=== PATIENT | female | born 1945 | race Caucasian/White ===

== ENCOUNTER 2016-11-06 07:09 | Day surgery (SDC) | payer MEDICARE, OTHER ==
[2016-11-06] MEDS ORDERED: Sodium Chloride 0.9% 1,000 ML IV SCH (07:45)
[2016-11-06] MEDS ORDERED: Propofol 200 MG/20 ML SDV ONE (08:27)
[2016-11-06] MEDS ORDERED: Midazolam 1 MG/ML 2 ML SDV ONE (08:28)
[2016-11-06] MEDS ORDERED: fentaNYL 100 MCG/2 ML SDV ONE (08:28)
[2016-11-06 10:40] VITALS: BP 100/70
--- NOTE | 2016-11-09 12:06 | OR ---
DATE OF PROCEDURE: 11/06/2016 PROCEDURE: Colonoscopy. FINDINGS: Transverse colon polyp, 5 mm, completely removed using cold biopsy forceps; sigmoid colon polyp, 5 mm, completely removed using cold biopsy forceps. COMPLICATIONS: None. DEMO COORDINATOR: None. ANESTHETIC: MAC. PREOPERATIVE DIAGNOSIS: History of colon polyps. POSTOPERATIVE DIAGNOSIS: History of colon polyps. CONSENT: The risks, benefits, alternatives, and limitations, including, but not limited to infection, bleeding, and perforation were explained, and the patient wished to proceed. PROCEDURE IN DETAIL: The patient was placed in left lateral decubitus position. A digital rectal exam was performed without abnormality. The scope was introduced and advanced atraumatically to the ileocecal valve. The scope was brought back to the ascending, transverse, descending colon, and retroflexed. The aforementioned polyps were identified and completely removed. No other abnormalities were noted. No diverticulosis, no masses. The patient tolerated the procedure well. Daron Mendiola MD /[id number]
== END 2016-11-06 10:55 | disposition home or self-care (01) ==
LOC: JP.SDS 07:09
PROVIDERS: ATTEND Surgery
PROC: 0DJD8ZZ Inspection of Lower Intestinal Tract, Via Natural or Artificial Opening Endoscopic (ICD-10-PCS; principal; 2016-11-06)
DX: Z86.010 Personal history of colon polyps (principal); D12.5 Benign neoplasm of sigmoid colon; D12.3 Benign neoplasm of transverse colon
CPT/HCPCS: 45378; J2250; J2704; J3010; J7040; 88305

== ENCOUNTER 2019-01-06 10:20 | Emergency (ER) | payer MEDICARE, OTHER ==
[2019-01-06 11:09] VITALS: BP 119/48
--- NOTE | 2019-01-06 12:32 | EDM.PDOC ---
ED HPI GENERAL MEDICAL PROBLEM - General Chief Complaint: ENT Problem Stated Complaint: CANCER TREATMENTS-NOT FEELING WELL/SORE THROAT Time Seen by Provider: 01/06/19 12:26 Source of Information: Reports: Patient History Limitations: Reports: No Limitations - History of Present Illness INITIAL COMMENTS - FREE TEXT/NARRATIVE: Patient presents concerned that she might have strep throat in the context of receiving chemotherapy. She is retirement through a current course of chemotherapy through the [facility] in [place]. Over the last 2 days she's noticed an increase in throat pain and redness. She contacted her oncologist today who recommended that she go to the local [facility] and have some blood drawn and a strep swab obtained. She reports that she went to the clinic but that there was no nurse available who could draw blood for lab testing. She came to the emergency department instead. Throat is moderately uncomfortable. She is concerned that her chemotherapy is reducing her blood counts and that is what is making her ill. She has no other new concerns apart from the throat. Onset: Gradual Duration: Day(s): (2) Location: Reports: Neck Quality: Reports: Burning Severity: Moderate Improves with: Reports: None Worsens with: Reports: Other (Swallowing) Associated Symptoms: Reports: Malaise. 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 - Related Data Allergies Allergy/AdvReac Type Severity Reaction Status Date / Time Sulfa (Sulfonamide Allergy Swelling Verified 01/06/19 11:07 Antibiotics) Home Meds: Home Meds Montelukast [Singulair] 10 mg PO DAILY 10/26/13 [History] Omeprazole 40 mg PO DAILY 10/26/13 [History] Sertraline [Zoloft] 100 mg PO DAILY 10/26/13 [History] atorvaSTATin [Lipitor] 40 mg PO BEDTIME 10/26/13 [History] Albuterol Sulfate [Proair Hfa] 1 - 2 gm IH Q4H PRN 11/04/16 [History] Ergocalciferol (Vitamin D2) [Vitamin D] 400 unit PO DAILY 11/06/16 [History] Past Medical History HEENT History: Reports: Cataract, Hard of Hearing, Impaired Vision Other HEENT History: wears glasses, right hearing aide Cardiovascular History: Reports: High Cholesterol Respiratory History: Reports: Asthma, Other (See Below) Other Respiratory History: polymyalgia rheumatica Gastrointestinal History: Reports: Colon Polyp, GERD, Hemorrhoids Genitourinary History: Reports: Other (See Below) 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 - Infectious Disease History Infectious Disease History: Reports: Chicken Pox, Measles, Mononucleosis, Mumps - Past Surgical History Head Surgeries/Procedures: Reports: None HEENT Surgical History: Reports: Cataract Surgery, Tonsillectomy Cardiovascular Surgical History: Reports: None Respiratory Surgical History: Reports: None GI Surgical History: Reports: None Female Surgical History: Reports: Hysterectomy Musculoskeletal Surgical History: Reports: Shoulder Surgery, Other (See Below) Oncologic Surgical History: Reports: Other (See Below) Dermatological Surgical History: Reports: None Social & Family History - Family History Cardiac: Reports: Heart Failure - Tobacco Use Smoking Status *Q: Former Smoker Used Tobacco, but Quit: Yes Month/Year Tobacco Last Used: 1997 Second Hand Smoke Exposure: No - Caffeine Use Caffeine Use: Reports: Coffee - Recreational Drug Use Recreational Drug Use: No ED ROS ENT - Review of Systems Review Of Systems: See Below Constitutional: Reports: No Symptoms. Denies: Fever, Night Sweats HEENT: Reports: Throat Pain Respiratory: Reports: No Symptoms Cardiovascular: Reports: No Symptoms GI/Abdominal: Reports: Nausea ED EXAM, ENT - Physical Exam Exam: See Below Text/Narrative:: When speaking, the patient looks and sounds uncomfortable. Inspection of the oropharynx shows mild redness inside but no exudate. There are no neck masses to palpation on the neck. Remainder of head exam is unremarkable. Exam Limited By: No Limitations General Appearance: Mild Distress Mouth/Throat: Pharyngeal Erythema. No: Tonsillar Exudates, Tonsillar Swelling Respiratory/Chest: No Respiratory Distress Cardiovascular: Tachycardia Course - Vital Signs Last Recorded V/S: Last Vital Signs Temp 36.2 C 01/06/19 11:17 Pulse 99 01/06/19 11:17 Resp 19 01/06/19 11:17 BP 119/48 L 01/06/19 11:17 Pulse Ox 95 01/06/19 11:17 - Orders/Labs/Meds Orders: Active Orders 24 hr Category Date Time Status CULTURE STREP A CONFIRMATION [RM] Stat Lab 01/06/19 12:32 Results STREP SCRN A RAPID W CULT CONF [RM] Stat Lab 01/06/19 12:32 Results Labs: Laboratory Tests 01/06/19 Range/Units 12:43 WBC 2.6 L (4.5-11.0) K/uL RBC 3.57 (3.30-5.50) M/uL Hgb 10.0 L (12.0-15.0) g/dL Hct 29.5 L (36.0-48.0) % MCV 83 (80-98) fL MCH 28 (27-31) pg MCHC 34 (32-36) % Plt Count 20 L* (150-400) K/uL Add Manual Diff Yes Neutrophils % (Manual) 34 L (36-66) % Band Neutrophils % 2 L (5-11) % Lymphocytes % (Manual) 50 H (24-44) % Monocytes % (Manual) 8 H (2-6) % Eosinophils % (Manual) 2 (2-4) % Blast Cells % 4 % - Re-Assessments/Exams Free Text/Narrative Re-Assessment/Exam: 01/07/19 08:22 I returned later to review results of lab work which show leukopenia, thrombocytopenia, anemia. She reports that she has had counts lower than these in the past. Strep screen is negative. I recommend conservative measures with increased fluids and analgesics as needed. Contact her oncologist's office with results of this lab work for their review. Departure - Departure Time of Disposition: 13:49 Disposition: Home, Self-Care 01 Condition: Good Clinical Impression: Pharyngitis, Thrombocytopenia, Leukopenia - Discharge Information *PRESCRIPTION DRUG MONITORING PROGRAM REVIEWED*: Not Applicable *COPY OF PRESCRIPTION DRUG MONITORING REPORT IN PATIENT PHANI: Not Applicable Instructions: Pharyngitis Referrals: Aubrey Rodriguez MD [Primary Care Provider] - Forms: ED Department Discharge Additional Instructions: Contact [facility] oncology with reports of your lab work today. - My Orders Last 24 Hours: My Active Orders 01/06/19 12:32 CULTURE STREP A CONFIRMATION [RM] Stat STREP SCRN A RAPID W CULT CONF [RM] Stat - Assessment/Plan Last 24 Hours: My Active Orders 01/06/19 12:32 CULTURE STREP A CONFIRMATION [RM] Stat STREP SCRN A RAPID W CULT CONF [RM] Stat
== END 2019-01-06 14:05 | disposition home or self-care (01) ==
LOC: JP.ED 10:20
DX: J02.9 Acute pharyngitis, unspecified (principal); D69.6 Thrombocytopenia, unspecified; D72.819 Decreased white blood cell count, unspecified; E78.00 Pure hypercholesterolemia, unspecified; J45.909 Unspecified asthma, uncomplicated; Z79.899 Other long term (current) drug therapy; Z88.2 Allergy status to sulfonamides; Z87.891 Personal history of nicotine dependence
CPT/HCPCS: 36415; 85025; 87081; 87430; 99283

== ENCOUNTER 2019-01-09 06:30 | Emergency (ER) | payer MEDICARE, OTHER ==
--- NOTE | 2019-01-09 07:14 | EDM.PDOC ---
ED HPI GENERAL MEDICAL PROBLEM - General Chief Complaint: Gastrointestinal Problem Stated Complaint: stomach pain Time Seen by Provider: 01/09/19 07:04 Source of Information: Reports: Patient History Limitations: Reports: No Limitations - History of Present Illness INITIAL COMMENTS - FREE TEXT/NARRATIVE: pt arrived stating that she has not had a bm for about 1 week. abd pain Pain Score (Numeric/FACES): 4 - Related Data Allergies Allergy/AdvReac Type Severity Reaction Status Date / Time Sulfa (Sulfonamide Allergy Swelling Verified 01/06/19 11:07 Antibiotics) Home Meds: Home Meds Montelukast [Singulair] 10 mg PO DAILY 10/26/13 [History] Omeprazole 40 mg PO DAILY 10/26/13 [History] Sertraline [Zoloft] 100 mg PO DAILY 10/26/13 [History] atorvaSTATin [Lipitor] 40 mg PO BEDTIME 10/26/13 [History] Albuterol Sulfate [Proair Hfa] 1 - 2 gm IH Q4H PRN 11/04/16 [History] Ergocalciferol (Vitamin D2) [Vitamin D] 400 unit PO DAILY 11/06/16 [History] Past Medical History HEENT History: Reports: Cataract, Hard of Hearing, Impaired Vision Other HEENT History: wears glasses, right hearing aide Cardiovascular History: Reports: High Cholesterol Respiratory History: Reports: Asthma, Other (See Below) Other Respiratory History: polymyalgia rheumatica Gastrointestinal History: Reports: Colon Polyp, GERD, Hemorrhoids Genitourinary History: Reports: Other (See Below) Other Genitourinary History: nephrostomy 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 - Infectious Disease History Infectious Disease History: Reports: Chicken Pox, Measles, Mononucleosis, Mumps - Past Surgical History Head Surgeries/Procedures: Reports: None HEENT Surgical History: Reports: Cataract Surgery, Tonsillectomy Female Surgical History: Reports: Hysterectomy Musculoskeletal Surgical History: Reports: Shoulder Surgery, Other (See Below) Oncologic Surgical History: Reports: Other (See Below) Social & Family History - Family History Cardiac: Reports: Heart Failure - Tobacco Use Smoking Status *Q: Never Smoker - Caffeine Use Caffeine Use: Reports: Coffee - Recreational Drug Use Recreational Drug Use: No Course - Vital Signs Last Recorded V/S: Last Vital Signs Temp 36.1 C 01/09/19 06:43 Pulse 73 01/09/19 06:43 Resp 18 01/09/19 06:43 BP 143/71 H 01/09/19 06:43 Pulse Ox 98 01/09/19 06:43 Departure - Discharge Information Referrals: PCP,None [Primary Care Provider] -
[2019-01-09] MEDS ORDERED: Lidocaine 2% Jelly 10 ML Urojet MUCMEM ONE ×2 (07:16→08:36)
[2019-01-09] MEDS ORDERED: HYDROmorphone 0.5 MG/0.5 ML Syringe IVPUSH ONE ×2 (07:16→08:37)
[2019-01-09] MEDS ORDERED: Prochlorperazine 10 MG/2 ML SDV IVPUSH ONE (07:31)
--- NOTE | 2019-01-09 08:04 | EDM.PDOC ---
ED HPI GENERAL MEDICAL PROBLEM - General Chief Complaint: Gastrointestinal Problem Stated Complaint: stomach pain Time Seen by Provider: 01/09/19 07:04 Source of Information: Reports: Patient History Limitations: Reports: No Limitations - History of Present Illness INITIAL COMMENTS - FREE TEXT/NARRATIVE: pt arrived with a history of severe constipation. She has not had a bm for 1 week. She has been using zoforan 4 mg 3 to 4 times daily. Onset: Gradual, Other ( This has been going on for 1 week. ) Duration: Hour(s): Location: Reports: Abdomen Associated Symptoms: Reports: Loss of Appetite, Nausea/Vomiting, Other ( constipaion. ) abd pain Pain Score (Numeric/FACES): 4 - Related Data Allergies Allergy/AdvReac Type Severity Reaction Status Date / Time Sulfa (Sulfonamide Allergy Swelling Verified 01/06/19 11:07 Antibiotics) Home Meds: Home Meds Montelukast [Singulair] 10 mg PO DAILY 10/26/13 [History] Omeprazole 40 mg PO DAILY 10/26/13 [History] Sertraline [Zoloft] 100 mg PO DAILY 10/26/13 [History] atorvaSTATin [Lipitor] 40 mg PO BEDTIME 10/26/13 [History] Albuterol Sulfate [Proair Hfa] 1 - 2 gm IH Q4H PRN 11/04/16 [History] Ergocalciferol (Vitamin D2) [Vitamin D] 400 unit PO DAILY 11/06/16 [History] Past Medical History HEENT History: Reports: Cataract, Hard of Hearing, Impaired Vision Other HEENT History: wears glasses, right hearing aide Cardiovascular History: Reports: High Cholesterol Respiratory History: Reports: Asthma, Other (See Below) Other Respiratory History: polymyalgia rheumatica Gastrointestinal History: Reports: Colon Polyp, GERD, Hemorrhoids Genitourinary History: Reports: Other (See Below) Other Genitourinary History: nephrostomy 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 - Infectious Disease History Infectious Disease History: Reports: Chicken Pox, Measles, Mononucleosis, Mumps - Past Surgical History Head Surgeries/Procedures: Reports: None HEENT Surgical History: Reports: Cataract Surgery, Tonsillectomy Female Surgical History: Reports: Hysterectomy Musculoskeletal Surgical History: Reports: Shoulder Surgery, Other (See Below) Oncologic Surgical History: Reports: Other (See Below) Social & Family History - Family History Cardiac: Reports: Heart Failure - Tobacco Use Smoking Status *Q: Never Smoker - Caffeine Use Caffeine Use: Reports: Coffee - Recreational Drug Use Recreational Drug Use: No ED ROS GENERAL - Review of Systems Review Of Systems: See Below Constitutional: Reports: No Symptoms HEENT: Reports: No Symptoms Respiratory: Reports: No Symptoms Endocrine: Reports: No Symptoms GI/Abdominal: Reports: Constipation, Decreased Appetite, Nausea : Reports: No Symptoms Musculoskeletal: Reports: No Symptoms Skin: Reports: No Symptoms Neurological: Reports: No Symptoms Psychiatric: Reports: Anxiety Hematologic/Lymphatic: Reports: No Symptoms Immunologic: Reports: No Symptoms ED EXAM, GI/ABD - Physical Exam Exam: See Below Text/Narrative:: pt arrived very uncomfortable with a fecal impaction. She has a history of bladder Ca. She has been using alot of zoforan which can be very constipating. She has been drinking adequate fluids. She has some painful hemmoroids from straining alot. Exam Limited By: No Limitations General Appearance: Alert, Moderate Distress Ears: Normal TMs Nose: Normal Inspection Throat/Mouth: Normal Inspection Head: Atraumatic Neck: Normal Inspection Respiratory/Chest: No Respiratory Distress Cardiovascular: Regular Rate, Rhythm GI/Abdominal Exam: Other (lower abdomanal tenderness. ) (Female) Exam: Deferred Rectal (Female) Exam: Other (pt has a large fecal impaction with liquid stool running out around it. She has not had a bm for 1 week. Her hemmoroids are very swollen from straining so much. ) Back Exam: Normal Inspection Extremities: Normal Inspection Neurological: Alert, Oriented, Normal Cognition Psychiatric: Normal Affect Course - Vital Signs Last Recorded V/S: Last Vital Signs Temp 36.1 C 01/09/19 06:43 Pulse 84 01/09/19 08:12 Resp 16 01/09/19 08:12 BP 123/71 01/09/19 08:12 Pulse Ox 97 01/09/19 08:12 - Orders/Labs/Meds Labs: Laboratory Tests 01/09/19 01/09/19 Range/Units 07:19 07:19 WBC 5.9 (4.5-11.0) K/uL RBC 4.13 (3.30-5.50) M/uL Hgb 11.7 L (12.0-15.0) g/dL Hct 34.4 L (36.0-48.0) % MCV 83 (80-98) fL MCH 28 (27-31) pg MCHC 34 (32-36) % Plt Count 121 L (150-400) K/uL Add Manual Diff Yes Neutrophils % (Manual) 58 (36-66) % Band Neutrophils % 1 L (5-11) % Lymphocytes % (Manual) 25 (24-44) % Monocytes % (Manual) 15 H (2-6) % Basophils % (Manual) 1 (0-1) % Sodium 138 L (140-148) mmol/L Potassium 3.6 (3.6-5.2) mmol/L Chloride 103 (100-108) mmol/L Carbon Dioxide 24 (21-32) mmol/L Anion Gap 14.6 H (5.0-14.0) mmol/L BUN 18 (7-18) mg/dL Creatinine 0.9 (0.6-1.0) mg/dL Est Cr Clr Drug Dosing 40.75 mL/min Estimated GFR (MDRD) > 60 (>60) Glucose 135 H (74-106) mg/dL Calcium 9.4 (8.5-10.1) mg/dL Meds: Medications Discontinued Medications Generic Name Dose Route Start Last Admin Trade Name Jorge PRN Reason Stop Dose Admin Hydromorphone HCl 0.5 mg 01/09/19 07:16 01/09/19 07:24 Dilaudid IVPUSH 01/09/19 07:17 0.5 mg ONETIME ONE Administration Hydromorphone HCl 0.5 mg 01/09/19 08:37 01/09/19 08:43 Dilaudid IVPUSH 01/09/19 08:38 0.5 mg ONETIME ONE Administration Lidocaine HCl 10 ml 01/09/19 07:16 01/09/19 07:24 Xylocaine 2% Jelly MUCMEM 01/09/19 07:17 10 ml ONETIME ONE Administration Lidocaine HCl 10 ml 01/09/19 08:36 01/09/19 08:43 Xylocaine 2% Jelly MUCMEM 01/09/19 08:37 10 ml ONETIME ONE Administration Magnesium Citrate 296 ml 01/09/19 08:34 01/09/19 08:43 Citrate Of Magnesia PO 01/09/19 08:35 296 ml ONETIME ONE Administration Prochlorperazine Edisylate 10 mg 01/09/19 07:31 01/09/19 07:38 Compazine IVPUSH 01/09/19 07:32 10 mg ONETIME ONE Administration - Re-Assessments/Exams Free Text/Narrative Re-Assessment/Exam: 01/09/19 09:46 t had a urojet used in the rectum and around it twice with each enema. She was given a total of dilaudid 1 mg. She first was given a oil retention enemea with some results. She was then given a tap water enema with just liquid results. A repeat rectal exam was done and the stool was broken up. Some hard pieces were removed. She then got on the commode and she had a very large clean out. Departure - Departure Time of Disposition: 09:35 Disposition: Home, Self-Care 01 Condition: Fair Clinical Impression: Constipation, Bladder cancer - Discharge Information Instructions: Constipation, Adult Referrals: PCP,None [Primary Care Provider] - Forms: ED Department Discharge Care Plan Goals: get sitz bath set up from drug store.-- do sitz bath for hemmoroids twice daily , Anusol with hc rectal supp insert in rectum twice daily, use 3-4 prunes on a daily basis, gummy fibers 3-4 daily, miralax usual dose daily, high fiber diet drink adequate fluids. Decrease the amount of zoforan used if possible.
[2019-01-09 08:24] VITALS: BP 123/71
[2019-01-09] MEDS ORDERED: Magnesium Citrate Solution 296 ML Bottle PO ONE (08:34)
== END 2019-01-09 10:01 | disposition home or self-care (01) ==
LOC: JP.ED 06:30
DX: K59.00 Constipation, unspecified (principal); C67.9 Malignant neoplasm of bladder, unspecified; M06.9 Rheumatoid arthritis, unspecified; M19.90 Unspecified osteoarthritis, unspecified site; Z98.49 Cataract extraction status, unspecified eye; Z98.890 Other specified postprocedural states; Z90.710 Acquired absence of both cervix and uterus; Z79.899 Other long term (current) drug therapy; Z88.2 Allergy status to sulfonamides
CPT/HCPCS: 36415; 80048; 85025; 96374; 96375; 96376; 99284; A9270; J0780; J1170

== ENCOUNTER 2020-03-27 11:26 | Emergency (ER) | payer MEDICARE, OTHER ==
[2020-03-27] MEDS ORDERED: Sodium Chloride 0.9% 1,000 ML IV ONE (12:16)
[2020-03-27] MEDS ORDERED: Ketorolac 30 MG/ML SDV IVPUSH ONE (12:17)
[2020-03-27] MEDS ORDERED: Ondansetron 4 MG/2 ML SDV IVPUSH ONE (12:18)
[2020-03-27] MEDS ORDERED: Sodium Chloride 0.9% 10 ML Syringe FLUSH PRN (12:18)
--- NOTE | 2020-03-27 12:24 | EDM.PDOC ---
<Patricia Bob M - Last Filed: 03/27/20 14:04> ED HPI GENERAL MEDICAL PROBLEM - General Chief Complaint: General Stated Complaint: CANCER OF BLADDER WEAK Time Seen by Provider: 03/27/20 12:05 Source of Information: Reports: Patient, RN, RN Notes Reviewed History Limitations: Reports: No Limitations - History of Present Illness INITIAL COMMENTS - FREE TEXT/NARRATIVE: Pt brought to ER with increasing weakness and feelings of dehydration. Pt is lying on stretcher and able to give H&P. Denies SOB, CP, night sweats, or fever. Pt has nausea and has vomited 2 days in a row. 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 Pt is currently on chronic pain medication based on cancer diagnosis. Pain is 03/01. Uses ice at home in conjunction with pain meds. Onset: Sudden, Gradual Onset Date: 03/25/20 Duration: Day(s):, Getting Worse Location: Reports: Back, Other (nausea and weakness ) Severity: Moderate Improves with: Reports: None Worsens with: Reports: Eating, Movement - Related Data Allergies Allergy/AdvReac Type Severity Reaction Status Date / Time Sulfa (Sulfonamide Allergy Swelling Verified 01/06/19 11:07 Antibiotics) Home Meds: Home Meds Montelukast [Singulair] 10 mg PO DAILY 10/26/13 [History] Sertraline [Zoloft] 150 mg PO DAILY 10/26/13 [History] atorvaSTATin [Lipitor] 40 mg PO BEDTIME 10/26/13 [History] Albuterol Sulfate [Proair Hfa] 1 - 2 gm IH Q4H PRN 11/04/16 [History] Ergocalciferol (Vitamin D2) [Vitamin D] 400 unit PO DAILY 11/06/16 [History] Celecoxib 200 mg PO ASDIRECTED PRN 03/27/20 [History] Hydrocodone/Acetaminophen [Hydrocodon-Acetaminophen 5-325] 1 - 2 tab PO ASDIRECTED PRN 03/27/20 [History] Metoclopramide HCl 10 mg PO ASDIRECTED PRN 03/27/20 [History] Past Medical History HEENT History: Reports: Cataract, Hard of Hearing, Impaired Vision Other HEENT History: wears glasses, right hearing aide Cardiovascular History: Reports: High Cholesterol Respiratory History: Reports: Asthma, Other (See Below) Other Respiratory History: polymyalgia rheumatica Gastrointestinal History: Reports: Colon Polyp, GERD, Hemorrhoids Genitourinary History: Reports: Other (See Below) Other Genitourinary History: nephrostomy [employer] History: Reports: Musculoskeletal History: Reports: Arthritis, Back Pain, Chronic, Fracture, RA Psychiatric History: Reports: Depression Hematologic History: Reports: Blood Transfusion(s), Other (See Below) 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 Immunologic History: Reports: Immunosuppression Other Immunologic History: Immunotherapy at this time. Oncologic (Cancer) History: Reports: Bladder, Lymphoma Other Oncologic History: mantel cell cancer and Vurkitts lymphoma - Infectious Disease History Infectious Disease History: Reports: Chicken Pox, Measles, Mononucleosis, Mumps - Past Surgical History Head Surgeries/Procedures: Reports: None HEENT Surgical History: Reports: Cataract Surgery, Tonsillectomy Female Surgical History: Reports: Hysterectomy Musculoskeletal Surgical History: Reports: Shoulder Surgery, Other (See Below) Oncologic Surgical History: Reports: Other (See Below) Dermatological Surgical History: Reports: None Social & Family History - Family History Cardiac: Reports: Heart Failure - Tobacco Use Smoking Status *Q: Never Smoker - Caffeine Use Caffeine Use: Reports: Coffee ED EXAM, GENERAL - Physical Exam Exam: See Below Exam Limited By: No Limitations General Appearance: Alert, WD/WN, Moderate Distress Head: Normocephalic Neck: Normal Inspection, Supple Respiratory/Chest: No Respiratory Distress, Lungs Clear, Normal Breath Sounds, No Accessory Muscle Use Cardiovascular: Regular Rate, Rhythm, No Edema, No Murmur, No Rub GI/Abdominal: Soft, No Distention, Other (Bladder cancer ) (Female) Exam: Deferred Rectal (Female) Exam: Deferred Back Exam: Other (Chronic spine pain due to cancer ) Extremities: Normal Inspection Neurological: Alert, Oriented, CN II-XII Intact Psychiatric: Other (Weak ) Course - Re-Assessments/Exams Free Text/Narrative Re-Assessment/Exam: 03/27/20 12:25 Examined pt. Will order NS bolus, Zofran, and Toradol. 03/27/20 13:11 IV medication given. Fluids infusing. 03/27/20 14:04 IVF bolus in. Zofran and Toradol positive effects. Will d/c home with Zofran Departure - Departure Disposition: Home, Self-Care 01 Condition: Good Clinical Impression: Weakness - Discharge Information *PRESCRIPTION DRUG MONITORING PROGRAM REVIEWED*: Not Applicable *COPY OF PRESCRIPTION DRUG MONITORING REPORT IN PATIENT PHANI: Not Applicable Instructions: Weakness, [id number] Referrals: Aubrey Rodriguez MD [Primary Care Provider] - Forms: ED Department Discharge Additional Instructions: Please get plenty of rest and increase your diet from clear liquids to a normal diet as your body tolerates. Zofran tablets are being sent home to help with any lingering nausea. Follow prescriber directions on bottle. In the event you feel weak, have nausea and vomiting, please see your regular provider or come back to the ER. Sepsis Event Note (ED) - Evaluation Sepsis Screening Result: No Definite Risk - Problem List & Annotations (1) Weakness SNOMED Code(s): 38192836 Code(s): R53.1 - WEAKNESS Status: Acute - Problem List Review Problem List Initiated/Reviewed/Updated: Yes - Assessment/Plan Assessment:: Please get plenty of rest and increase your diet from clear liquids to a normal diet as your body tolerates. Zofran tablets are being sent home to help with any lingering nausea. Follow prescriber directions on bottle. In the event you feel weak, have nausea and vomiting, please see your regular provider or come back to the ER. <Aubrey Dominguez D - Last Filed: 03/27/20 18:16> ED ROS GENERAL - Review of Systems Review Of Systems: See Below Constitutional: Denies: Fever, Chills Respiratory: Denies: Shortness of Breath GI/Abdominal: Reports: Nausea, Vomiting Skin: Reports: No Symptoms Neurological: Reports: Dizziness, Weakness. Denies: Headache Psychiatric: Reports: No Symptoms Course - Vital Signs Last Recorded V/S: Last Vital Signs Temp 97.6 F 03/27/20 11:53 Pulse 96 03/27/20 11:53 Resp 13 03/27/20 11:53 BP 127/60 03/27/20 11:53 Pulse Ox 95 03/27/20 11:53 - Orders/Labs/Meds Orders: Active Orders 24 hr Category Date Time Status Peripheral IV Care [RC] . DIRECTED Care 03/27/20 12:18 Active Peripheral IV Insertion Adult [OM.PC] Routine Oth 03/27/20 12:18 Ordered Meds: Medications Discontinued Medications Generic Name Dose Route Start Last Admin Trade Name Jorge PRN Reason Stop Dose Admin Sodium Chloride 1,000 mls @ 999 mls/hr 03/27/20 12:16 03/27/20 13:05 Normal Saline IV 03/27/20 13:16 Not Given .BOLUS ONE Sodium Chloride 1,000 mls @ 999 mls/hr 03/27/20 13:15 03/27/20 13:05 Normal Saline IV 999 mls/hr ASDIRECTED HAI Administration Ketorolac Tromethamine 30 mg 03/27/20 12:17 03/27/20 12:55 Toradol IVPUSH 03/27/20 12:18 30 mg ONETIME ONE Administration Ondansetron HCl 4 mg 03/27/20 12:18 03/27/20 12:55 Zofran IVPUSH 03/27/20 12:19 4 mg ONETIME ONE Administration Sodium Chloride 10 ml 03/27/20 12:18 03/27/20 13:06 Saline Flush FLUSH 10 ml ASDIRECTED PRN Administration Keep Vein Open - Re-Assessments/Exams Free Text/Narrative Re-Assessment/Exam: 03/27/20 18:15 After fluids and medication, patient ambulated with much less symptoms. She will return if worsening despite treatment and medications. Departure - Departure Time of Disposition: 14:33 Sepsis Event Note (ED) - Focused Exam Vital Signs: Vital Signs Temp Pulse Resp BP Pulse Ox 03/27/20 11:53 97.6 F 96 13 127/60 95 03/27/20 11:42 97.6 F 96 13 127/60 95 Attestation - Student - Attestation Statement Attestation Statement: I personally performed or re-performed the physical examination and medical decision making. I have verified all student documentation or findings, including history, physical exam and/or medical decision making.
[2020-03-27 12:40] VITALS: BP 127/60; PULSE 96
[2020-03-27] MEDS ORDERED: Sodium Chloride 0.9% 1,000 ML IV SCH (13:15)
== END 2020-03-27 14:33 | disposition home or self-care (01) ==
LOC: JP.ED 11:26
DX: R53.1 Weakness (principal); R11.2 Nausea with vomiting, unspecified; E78.00 Pure hypercholesterolemia, unspecified; J45.909 Unspecified asthma, uncomplicated; F32.9 Major depressive disorder, single episode, unspecified; Z88.2 Allergy status to sulfonamides; Z90.710 Acquired absence of both cervix and uterus; Z90.49 Acquired absence of other specified parts of digestive tract; Z98.890 Other specified postprocedural states
CPT/HCPCS: 96361; 96374; 96375; 99284; J1885; J2405; J7030